=== PATIENT | female | born 1980 | race Caucasian/White ===

== ENCOUNTER 2018-07-14 09:39 | Outpatient (CLI) | payer OTHER ==
[2018-07-14 12:52] LABS: Hemoglobin 13.9 g/dL (12.0-16.0); Mean Corpuscular HGB CONC 33.6 g/dL (32.0-36.0); Mean Corpuscular Volume 95.2 fL (78.0-98.0); Mean Platelet Volume 7.9 fL (7.4-10.4); Platelet Count 290 thou/uL (130-400); RBC Distribution Width 11.5 % (11.5-14.5); Red Blood Cell (RBC) Count 4.35 mill/uL (4.20-5.40); White Blood Cell (WBC) Count 6.4 thou/uL (4.8-10.8)
[2018-07-14 13:09] LABS: BHCG - Serum Negative (NEGATIVE); Pregs Control Background? CLEAR/WHITE (CLR/WHITE); Pregs Control Bar Appear? YES (CONTROL BAR)
== END 2018-07-14 09:40 | disposition home or self-care (01) ==
LOC: LABBT 09:39
PROVIDERS: ATTEND Obstetrics & Gynecology
DX: Z01.812 Encounter for preprocedural laboratory examination (principal); N92.0 Excessive and frequent menstruation with regular cycle; N83.202 Unspecified ovarian cyst, left side
CPT/HCPCS: 84703; 85027; 86850; 86900; 86901

== ENCOUNTER 2018-07-21 09:33 | Day surgery (SDC) | payer OTHER ==
[2018-07-14 10:48] VITALS: BMI 27.4
--- NOTE | 2018-07-20 08:42 | HP ---
PROPOSED DATE OF SURGERY: 07/21/2018. HISTORY OF PRESENT ILLNESS: Ms. De Dios is a 37-year-old white female, G1, P1 with prior section and tubal ligation, who has been having progressively heavy menstrual bleeding. She describe her flow for 3 to 4 days, where she will saturate super tampon in less than 2 hours. She was given a trial of Lysteda and nonsteroidals for this in early fall of this past year. She did not have any significant improvement with her flow and was desiring endometrial ablation trial for this. In May, she had a followup for the medical management and then was with poor response to medical therapy and exchange mechanic ultrasound was performed to ascertain whether she was a candidate for the ablation procedure. Her uterus was normal in appearance that she did have a 6 cm left adnexal cyst seen on this ultrasound. She was given a followup ultrasound in 4 to 6 weeks, but also consideration of the ablation. At that time, she was noting to have persistence of the left adnexal cyst, approximately 5 to 6 cm and simple in character, and also reporting some left lower quadrant pain associated with this. It was decided to proceed with laparoscopy for the left adnexal cyst along with endometrial ablation, hysteroscopy procedure. PAST MEDICAL AND SURGICAL HISTORY: Chronic hypertension, where she is managed by her primary care physician, Dr. Mario, with amlodipine 5 mg daily. As noted, she has had a section and tubal ligation. ALLERGIES: IODINE AND CODEINE. FAMILY HISTORY: Heart disease in her maternal grandfather, skin cancer in her mother, hyperlipidemia in her mother, hypertension in her father. LICENSED MASSAGE THERAPIST HISTORY: As per HPI, and most recent Pap smear and HPV was normal, February of 2018. PHYSICAL EXAMINATION: GENERAL: The patient is well developed, well nourished white female, 5 feet 3 inches, weight 154 with a BMI 27.3. HEENT EXAM: Within normal limits. CHEST: Clear to auscultation. HEART: Regular rate and rhythm. S1, S2 heart sounds. No murmurs, rubs, or gallops. PELVIC EXAM: Vulva and vagina had no lesions. Cervix had no lesions. Uterus is small and nontender. Adnexa on the right was nontender with no masses. Left side was mildly tender with some fullness noted on exam. EXTREMITIES: Full range of motion. ASSESSMENT: 1. This is a 37-year-old white female, G1, P1, section, with tubal ligation with menorrhagia, unresponsive to medical management trial. 2. Persistent left ovarian cyst, approximately 5 to 6 cm with intermittent pain. PLAN: Plan is to proceed with hysteroscopy, D and C with endometrial ablation Catrina procedure along with laparoscopic left ovarian cystectomy and possible oophorectomy, if indicated. This is set for 07/21/2018. Job ID: [id number]
[2018-07-21] MEDS ORDERED: CEFAZOLIN 2 GM/50 ML BAG ONE (09:55)
[2018-07-21] MEDS ORDERED: Midazolam HCl 2 mg/2 ml Vial IVP SCH (11:05)
[2018-07-21] MEDS ORDERED: Bupivacaine HCl 0.5%/Epinephrine 1:200,000/PF 30 ml Vial ONE (12:02)
[2018-07-21] MEDS ORDERED: Fentanyl 100 MCG/2 ML VIAL ONE ×4 (12:03→14:51)
[2018-07-21] MEDS ORDERED: Midazolam HCl 2 mg/2 ml Vial ONE (12:06)
[2018-07-21] MEDS ORDERED: diphenhydrAMINE 50 MG/ML VIAL IVP SCH (14:29)
[2018-07-21] MEDS ORDERED: diphenhydrAMINE 50 MG/ML VIAL ONE (14:45)
[2018-07-21] MEDS ORDERED: Famotidine/PF 20 mg/2ml Vial ONE (15:27)
[2018-07-21] MEDS ORDERED: HYDROmorphone 2 MG/ML VIAL ONE (15:27)
[2018-07-21] MEDS ORDERED: Ondansetron PF 4 MG/2 ML Vial ONE ×2 (15:28→16:55)
[2018-07-21] MEDS ORDERED: Hydrocortisone Sod Succ/PF 100 mg/2 ml Vial ONE (15:34)
[2018-07-21] MEDS ORDERED: Rocuronium Bromide 10 MG/ML (10ML VIAL) ONE (16:55)
[2018-07-21] MEDS ORDERED: Glycopyrrolate 0.2 MG/ML 5 ML SYRINGE ONE (16:55)
[2018-07-21] MEDS ORDERED: Lidocaine 1% PF 5 ML VIAL ONE (16:55)
[2018-07-21] MEDS ORDERED: PROPOFOL 200 MG/20 ML VIAL ONE (16:55)
[2018-07-21] MEDS ORDERED: Dexamethasone 20 MG/5 ML VIAL ONE (16:55)
--- NOTE | 2018-07-21 16:58 | EKG ---
Test Reason : PREOP Blood Pressure : / mmHG Vent. Rate : 059 BPM Atrial Rate : 059 BPM P-R Int : 148 ms QRS Dur : 094 ms QT Int : 444 ms P-R-T Axes : 063 083 028 degrees QTc Int : 439 ms Sinus bradycardia Otherwise normal ECG No previous ECGs available Confirmed by DR. Jannet ALLEN ([id number]) on 07/21/2018 4:57:59 PM Referred By: Rachael Carter Confirmed By:DR. Jannet ALLEN
[2018-07-21] MEDS ORDERED: Morphine 4 MG/ML VIAL SLOW IVP PRN ×2 (17:17)
[2018-07-21] MEDS ORDERED: Ondansetron PF 4 MG/2 ML Vial SLOW IVP PRN (17:18)
[2018-07-21] MEDS ORDERED: HYDROcodone/Acetaminophen 5/325 mg Tablet PO PRN ×2 (17:19)
[2018-07-21] MEDS ORDERED: Lactated Ringer's 1,000 ML IV SCH (17:30)
[2018-07-21] MEDS ORDERED: Promethazine HCl 25 MG/ML VIAL ONE (17:31)
[2018-07-21] MEDS ORDERED: Ibuprofen 800 MG TAB PO SCH (18:00)
--- NOTE | 2018-07-21 18:33 | OP ---
DATE OF PROCEDURE: 07/21/2018 PREOPERATIVE DIAGNOSES: 1. A 37-year-old white female, G1, P1, prior and tubal ligation with menorrhagia, unresponsive to medical management. 2. Persistent 5 cm simple left ovarian cyst with pelvic pain. POSTOPERATIVE DIAGNOSES: 1. A 37-year-old white female, G1, P1, prior and tubal ligation with menorrhagia, unresponsive to medical management. 2. Persistent 5 cm simple left ovarian cyst with pelvic pain. PROCEDURES PERFORMED: 1. Diagnostic hysteroscopy with D and C and endometrial ablation with Catrina device. 2. Diagnostic laparoscopy with left ovarian cystectomy. DIVISION SALES MANAGER SURGEON: Mercedes Navarro PA-C ANESTHESIA: General endotracheal. ESTIMATED BLOOD LOSS: Less than 10 mL. COMPLICATIONS: None. COUNTS: Correct x2. FINDINGS: 1. Normal endocervical and endometrial cavity on hysteroscopy evaluation. 2. Fluid deficit from hysteroscopy was 20 mL of normal saline. 3. Normal-appearing uterus, right fallopian tube, and right ovary and left fallopian tube. 4. Approximately 3.5 cm deflating left ovarian simple cyst noted with clear fluid drainage noted. 5. Normal-appearing appendix, liver, gallbladder, and uterus. DISPOSITION: Recovery room, stable. DESCRIPTION OF PROCEDURE: The patient previously received informed consent in regard to surgery. She was taken back to the operating room, where she received a general endotracheal anesthetic agent without complications. She was placed in dorsal lithotomy position with use of Giacomo stirrups. She was prepped and draped in usual sterile fashion with in and out catheterization of bladder being performed. At this time, a sinus speculum was placed in the vagina. Anterior lip of the cervix was grasped with single-tooth tenaculum. The uterus sounded to 9 cm. The cervix was then sequentially dilated to a size 16 Hegar dilator and then the diagnostic 5 mm hysteroscope was assembled. The cystoscope was inserted through the cervical os into the endometrial cavity and the cavity was distended with saline under 80 mm of pressure. This was with the TrSustainX system. The previously mentioned findings were noted. Sharp curettage of the uterine cavity was then performed. This was sent for final pathologic diagnosis. The Catrina endometrial ablation device was then assembled. The length was set to 5 cm. The device was placed through the cervix up in the fundus and the end of the device was displayed. Usual cavity assessment was intact and the procedure was carried out with a 120 second treatment. The Catrina device was removed and hysteroscope was reinserted and ablation of the fundus and cornua in the lower uterine segment with sparing of the endocervical cavity was confirmed. Attention was then turned to the laparoscopic procedure. The infraumbilical area was infiltrated with 0.5% Marcaine with epinephrine 5 mL. A 5 mm infraumbilical incision was made. Veress needle was then entered into the peritoneal cavity, the patient's pressure was noted to be less than 5 mm. The abdomen was insufflated with the patient's pressure of 15 approximately 4.5 L of carbon dioxide gas. The Veress needle was then removed. A 5 mm trocar was then placed through the infraumbilical incision and the laparoscope was introduced through the trocar sleeve. Proper entry was then confirmed. The uterus was elevated by my assistant project engineer with a [employer]base uterine manipulator vaginally and the previously mentioned findings were noted. An assistant project engineer 5 mm suprapubic trocar was then placed under laparoscopic guidance along with the left lower quadrant 5 mm trocar. The adnexal structure was grasped at the left utero-ovarian ligament with the atraumatic grasper by my assistant project engineer. The deflated portion of the ovarian cyst was visualized in the nehal with cautery, 30 briceno was utilized to incise over the flayed portion of the cyst. Approximately a 2 cm window was made with clear fluid draining from the cyst and deflation of it. The edges of the cyst were cauterized with the Endo Nehal for hemostasis. Once this was completed, the previously mentioned findings were noted in the pelvis. The surgery was terminated. The trocar sleeves were removed after excess carbon dioxide gas had been released. Trocar sites were closed with 4-0 Monocryl suture and Dermabond. The vaginal vault was inspected. Hemostasis at the cervical site was confirmed. The patient was awakened from anesthesia and transferred to recovery room in stable condition. Job ID: [id number]
== END 2018-07-21 19:15 | disposition home or self-care (01) ==
LOC: SDC 09:33
PROVIDERS: ATTEND Obstetrics & Gynecology
PROC: 0U5B8ZZ Destruction of Endometrium, Via Natural or Artificial Opening Endoscopic (ICD-10-PCS; principal; 2018-07-21)
PROC: 0UDB8ZZ Extraction of Endometrium, Via Natural or Artificial Opening Endoscopic (ICD-10-PCS; principal; 2018-07-21)
PROC: 0UB14ZZ Excision of Left Ovary, Percutaneous Endoscopic Approach (ICD-10-PCS; principal; 2018-07-21)
DX: N92.0 Excessive and frequent menstruation with regular cycle (principal); N83.202 Unspecified ovarian cyst, left side; I10 Essential (primary) hypertension; Z98.51 Tubal ligation status; Z88.5 Allergy status to narcotic agent; Z91.09 Other allergy status, other than to drugs and biological substances; Z79.899 Other long term (current) drug therapy
CPT/HCPCS: 88305; 93005; 93010; J0670; J1100; J1170; J1200; J1720; J2001; J2250; J2405; J2550; J2704; J3010; S0028

== ENCOUNTER 2018-12-11 21:49 | Inpatient (IN) | payer OTHER ==
[2018-12-11 22:36] LABS: #Basophils 0.1 thou/uL (0.0-0.2); #Eosinphils 0.2 thou/uL (0.0-0.7); #Lymphocytes 1.6 thou/uL (1.20-3.40); #Monocytes 0.7 thou/uL (0.11-0.59); #Neutrophils 5.7 thou/uL (1.40-6.50); %Basophils 0.7 % (0.0-1.0); %Eosinophils 2.6 % (0.0-10.0); %Lymphocytes 19.8 % (21.0-51.0); %Neutrophils 68.9 % (42.0-75.0); Hemoglobin 12.7 g/dL (12.0-16.0); Mean Corpuscular HGB CONC 34.4 g/dL (32.0-36.0); Mean Corpuscular Hemoglobin 31.8 pg (27.0-31.0); Mean Corpuscular Volume 92.6 fL (78.0-98.0); Mean Platelet Volume 7.2 fL (7.4-10.4); Platelet Count 289 thou/uL (130-400); RBC Distribution Width 11.1 % (11.5-14.5); Red Blood Cell (RBC) Count 3.99 mill/uL (4.20-5.40); White Blood Cell (WBC) Count 8.3 thou/uL (4.8-10.8)
[2018-12-11 23:01] LABS: ALT (SGPT) 13 U/L (8-55); AST (SGOT) 21 U/L (5-34); Alkaline Phosphatase 81 U/L (40-150); Anion Gap 12 mmol/L (10-20); BUN (Urea Nitrogen) 35 mg/dL (7.0-18.7); Bilirubin, Total 0.2 mg/dL (0.2-1.2); Calc. Creatinine Clearance 0 mL/min (70-130); Calcium 8.7 mg/dL (7.8-10.44); Carbon Dioxide 22 mmol/L (22-29); Chloride 107 mmol/L (98-107); Estimated GFR-MDRD 16; Globulin 2.8 g/dL (2.4-3.5); Glucose 91 mg/dL (70-105); Protein, Total 6.8 g/dL (6.0-8.3); Sodium 137 mmol/L (136-145)
[2018-12-12] MEDS ORDERED: Metoclopramide HCl 10 MG/2 ML VIAL ONE (00:16)
[2018-12-12] MEDS ORDERED: diphenhydrAMINE 50 MG/ML VIAL ONE (00:16)
[2018-12-12 00:50] LABS: BHCG - Serum Negative (NEGATIVE); Pregs Control Background? CLEAR/WHITE (CLR/WHITE); Pregs Control Bar Appear? YES (CONTROL BAR)
[2018-12-12] MEDS ORDERED: Ondansetron PF 4 MG/2 ML Vial IVP PRN (01:33)
[2018-12-12] MEDS ORDERED: Ondansetron ODT 4 MG TAB SL PRN (01:33)
[2018-12-12] MEDS ORDERED: Acetaminophen 325 MG TAB PO PRN (01:33)
[2018-12-12] MEDS ORDERED: Lactated Ringer's 1,000 ML IV SCH (01:45)
[2018-12-12 01:58] VITALS: BMI 31.1
[2018-12-12] MEDS ORDERED: Bisacodyl 10 MG SUPP PR PRN (02:31)
[2018-12-12] MEDS ORDERED: Guaifenesin DM 100-10/5 ML UDCUP PO PRN (02:31)
[2018-12-12] MEDS ORDERED: Senokot S 8.6-50 MG TAB PO PRN (02:31)
[2018-12-12] MEDS: Sodium Chloride 0.45% 1,000 ML IV SCH ×3 (02:51→19:41)
--- NOTE | 2018-12-12 04:53 | HP ---
REASON FOR ADMISSION: Acute kidney injury. HISTORY OF PRESENTING ILLNESS: The patient gives history of having frontal headache and nausea and vomiting which she developed on Friday. She also had a temperature of 99.1 degrees on and finally made it to the emergency room. She was given a dose of Toradol and Benadryl and sent home. The patient also developed low back pain. She has not been able to hydrate herself or eat well from last Friday. She went to see Dr. Mario yesterday and had blood work done. His office called her back saying her creatinine is up and had to go to the emergency room for likely hospitalization. Currently has no nausea or vomiting at present. No complaints of urinary frequency or urgency. No abdominal pain, diarrhea, chest pain, palpitation, PND, or orthopnea. No cough or expectoration. Did not have any fever today. PAST MEDICAL AND SURGICAL HISTORY: Hypertension, history of C-spine surgery, ovarian cyst surgery, uterine ablation, x1 and tubal ligation. CURRENT MEDICATION: Norvasc 5 mg daily and sertraline 100 mg daily. The patient takes a medication for herpes oral sore off and on when she gets reactivation of herpes. ALLERGIES: ALLERGIC TO NARCOTICS, WHICH CAUSES ANAPHYLAXIS PER PATIENT. SHE IS ALSO ALLERGIC TO ADHESIVE TAPE, WHICH CAUSES RASH. PERSONAL HISTORY: Does not abuse alcohol or drugs. No history of smoking. FAMILY HISTORY: Mother has history of dyslipidemia. Father had CABG done and is also a smoker and drinks alcohol. REVIEW OF SYSTEMS: CONSTITUTIONAL: Negative for weight loss or gain, ability to conduct usual activities. SKIN: Negative for rash, itching. EYES: Negative for double vision, pain. ENT/MOUTH: Negative for nose bleeding, neck stiffness, pain, tenderness. CARDIOVASCULAR: Negative for palpitations, dyspnea on exertion, orthopnea. RESPIRATORY: Negative for shortness of breath, wheezing, cough, hemoptysis, fever or night sweats. GASTROINTESTINAL: Negative for poor appetite, abdominal pain, heartburn, nausea , vomiting, constipation, or diarrhea. GENITOURINARY: Negative for urgency, frequency, dysuria, nocturia. MUSCULOSKELETAL: Negative for pain, swelling. NEUROLOGIC/PSYCHIATRIC: Negative for anxiety, depression. ALLERGY/IMMUNOLOGIC: Negative for skin rash, bleeding tendency. PHYSICAL EXAMINATION: GENERAL: The patient is a 38-year-old female who is currently not in any acute distress. VITAL SIGNS: Blood pressure 140/86, pulse 64 per minute, respiratory rate 18 per minute, temperature 98 degrees Fahrenheit, and saturating 97% on room air. NECK: Supple. No elevated JVD. HEENT: Eyes; extraocular muscles intact. Pupils reacting to light. Oral cavity, mucous membranes are dry. No exudates or congestion. CARDIOVASCULAR: S1-S2 heard. Regular rhythm. RESPIRATORY: Air entry 1+ bilateral. No rales or rhonchi. ABDOMEN: Soft. Bowel sounds heard. No tenderness, rigidity, or guarding. No CV angle tenderness. EXTREMITIES: No peripheral edema or calf tenderness. VASCULAR: Peripheral pulses 2+ bilateral. No ischemic ulcerations or gangrene. CENTRAL NERVOUS SYSTEM: No gross focal deficits noted. The patient is alert, awake and oriented well. PSYCHIATRIC: The patient's mood is euthymic. No hallucinations or delusions. LABORATORY DATA: White count of 8, H and H 12 and 36, platelet count is 289 with 68% neutrophils. BUN 35, creatinine 3.2, serum bicarb 22. Electrolytes stable. Liver enzymes within normal limits. Albumin is 4.0. Serum test is negative. Lipase is 23. Please note, the patient has had abdominal and pelvic CAT scan and CT brain, the results of which are pending at present. CLINICAL IMPRESSION AND PLAN: The patient will be admitted to medical floor for acute kidney injury with history of severe nausea, vomiting, and headache from Friday. She likely has moderate dehydration as well. The patient will be gently hydrated with half-normal saline at 125 mL per hour. We will continue her Norvasc and Zoloft as before. We will await official results of CT abdomen and pelvis and CT brain results. The patient does not have any focal neurologic signs at present. Further workup will be dependent on the patient's clinical progress and the CAT scan results. We will request Nephrology consultation with Dr. Hennessy as well. Urinalysis and urine culture will be obtained as well. Code status was discussed with the patient and she is a full code. Job ID: [id number] MTDD
[2018-12-12 05:26] LABS: Bilirubin Negative (Negative); Blood, Urine Negative (Negative); Clarity CLEAR (Clear); Glucose, Urine (Dipstick) Negative (Negative); Leukocyte Negative (Negative); Nitrite Negative (Negative); Protein, Urine (Dipstick) Negative (Neg-Trace); Urobilinogen 0.2 mg/dL (0.2-1.0)
[2018-12-12 05:29] LABS: Bacteria/HPF None Seen HPF (None Seen); Hyaline Casts/LPF 0-3 HYALINE CAST LPF (0-3 Hyaline); Pathc Cast-AUWi Flag 0.27 (0-2.49); RBC/HPF 0-3 HPF (0-3); Squamous Epithelial 0-3 HPF (0-3)
[2018-12-12 05:44] LABS: #Basophils 0.1 thou/uL (0.0-0.2); #Eosinphils 0.1 thou/uL (0.0-0.7); #Lymphocytes 1.5 thou/uL (1.20-3.40); #Monocytes 0.6 thou/uL (0.11-0.59); #Neutrophils 5.7 thou/uL (1.40-6.50); %Basophils 0.9 % (0.0-1.0); %Eosinophils 1.6 % (0.0-10.0); %Lymphocytes 18.7 % (21.0-51.0); %Monocytes 7.5 % (0.0-10.0); %Neutrophils 71.3 % (42.0-75.0); Hemoglobin 12.2 g/dL (12.0-16.0); Mean Corpuscular HGB CONC 33.3 g/dL (32.0-36.0); Mean Corpuscular Hemoglobin 31.1 pg (27.0-31.0); Mean Corpuscular Volume 93.2 fL (78.0-98.0); Mean Platelet Volume 7.9 fL (7.4-10.4); Platelet Count 251 thou/uL (130-400); RBC Distribution Width 11.3 % (11.5-14.5); Red Blood Cell (RBC) Count 3.94 mill/uL (4.20-5.40)
[2018-12-12 06:06] LABS: Anion Gap 12 mmol/L (10-20); BUN (Urea Nitrogen) 31 mg/dL (7.0-18.7); Calc. Creatinine Clearance 32 mL/min (70-130); Calcium 8.5 mg/dL (7.8-10.44); Carbon Dioxide 22 mmol/L (22-29); Chloride 109 mmol/L (98-107); Estimated GFR-MDRD 18; Glucose 94 mg/dL (70-105); Sodium 139 mmol/L (136-145)
--- NOTE | 2018-12-12 07:54 | CT ---
PRELIMINARY REPORT/[facility]/EMERGENCY AFTER HOURS PROCEDURE: EXAM: CT Head Without Contrast EXAM DATE/TIME: 12/12/2018 12:19 AM CLINICAL HISTORY: 38 years old, female; Headache not specified; Patient HX: F38 presents to ED for headache, low back p ain, nausea, and vomiting x 3 days. TECHNIQUE: Imaging protocol: Axial computed tomography images of the head without contrast. COMPARISON: No relevant prior studies available. FINDINGS: Brain: Normal. No hemorrhage. Unremarkable white matter. No mass effect. Ventricles: Normal. No ventriculomegaly. Bones/joints: Unremarkable. No acute fracture. Sinuses: Visualized sinuses are unremarkable. No fluid levels. Mastoid air cells: Visualized mastoid air cells are well aerated. No mastoid effusion. Soft tissues: Unremarkable. IMPRESSION: No acute intracranial abnormality. Thank you for allowing us to participate in the care of your patient. Dictated and Authenticated by: Syed Arechiga MD 12/12/2018 12:45 AM Central Time ([place] & [place]) FINAL REPORT NONCONTRAST HEAD CT: HISTORY: Nausea. Vomiting. Headache. FINDINGS: No parenchymal hemorrhage or extra-axial hematoma. Brain volume is age-appropriate. No hydrocephalus, Intact calvarium. Adequate aeration of the sinuses and mastoid air cells. IMPRESSION: No acute intracranial process. This report is in agreement with the preliminary report by [facility]. POS: OFF
--- NOTE | 2018-12-12 08:48 | CT ---
PRELIMINARY REPORT/[facility]/EMERGENCY AFTER HOURS PROCEDURE: EXAM: CT Abdomen and Pelvis Without Contrast EXAM DATE/TIME: 12/12/2018 12:21 AM CLINICAL HISTORY: 38 years old, female; Other: Lower back; Prior surgery; Surgery type: Tubal; Patient HX: Rme-b; No pr evious on pacs; F38 presents to ED for headache, low back pain, nausea, and vomiting x 3 days. PT rep orts a HX of kidney stones but states current symptoms no not feel similar to previous stones. TECHNIQUE: Imaging protocol: Axial computed tomography images of the abdomen and pelvis without contrast. COMPARISON: No relevant prior studies available. FINDINGS: Liver: Normal. No mass. Gallbladder and bile ducts: Normal. No calcified stones. No ductal dilation. Pancreas: Normal. No ductal dilation. Spleen: Normal. No splenomegaly. Adrenals: Normal. No mass. Kidneys and ureters: Nonobstructing stones in the kidneys bilaterally. There is diffuse inflammation of the right kidney and right ureter with no hydroureteronephrosis or obstructing urolithiasis, consistent with pyelonephritis. Stomach and bowel: No bowel wall thickening or intestinal obstruction. Appendix: Normal appendix. Intraperitoneal space: Small volume free fluid in the dependent pelvis may be physiologic. Vasculature: Normal. No abdominal aortic aneurysm. Lymph nodes: Normal. No enlarged lymph nodes. Bladder: Unremarkable as visualized. Reproductive: Unremarkable as visualized. Bones/joints: No acute fracture. No dislocation. Soft tissues: Unremarkable. IMPRESSION: 1. There is diffuse inflammation of the right kidney and right ureter with no hydroureteronephrosis o r obstructing urolithiasis, consistent with pyelonephritis. 2. Small volume free fluid in the dependent pelvis may be physiologic. Thank you for allowing us to participate in the care of your patient. Dictated and Authenticated by: Syed Arechiga MD 12/12/2018 1:05 AM Central Time ([place] & [place]) FINAL REPORT CT ABDOMEN AND PELVIS PERFORMED WITHOUT CONTRAST ENHANCEMENT: Date: 12/12/18 HISTORY: Patient has low back pain, nausea and vomiting x3 days, history of kidney stones. COMPARISON: None. FINDINGS: The lung bases are clear. The liver, spleen, pancreas, and gallbladder regions appear unremarkable. Right and left adrenal glands are normal. There are punctate nonobstructing right renal calculi prese nt. There is some right periureteral fat stranding around the proximal right ureter, which is nondila carmen. There is no obstruction of the collecting system and no definite ureteral calculi are seen. Ther e are some phleboliths present in the pelvis, some of which would be very close to the distal right u reter, but I favor all of these to represent phleboliths. There is no significant periaortic or mesen teric adenopathy. CT of pelvis was performed without contrast enhancement. There is some free fluid present within the pelvis. There is no adenopathy or mass. The appendix appears unremarkable. IMPRESSION: 1. Bilateral nonobstructing punctate renal calculi. 2. Some mild fat stranding around the right ureter. The right kidney appears slightly larger as comp ared to the left. I do not see a definite ureteral calculus. I would favor that these changes may be related to a pyelonephritis. Clinical correlation is recommended. This report is in agreement with the preliminary report issued by [facility].
[2018-12-12] MEDS: Famotidine 20 MG TAB PO SCH (09:03)
[2018-12-12] MEDS: Amlodipine 5 MG TAB PO SCH (09:04)
[2018-12-12] MEDS: Enoxaparin Sodium 30 MG/0.3 ML SYRINGE SC SCH (09:04)
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
[2018-12-12] MEDS: Acetaminophen 325 MG TAB PO PRN ×2 (15:13→19:40)
[2018-12-13] MEDS: Sodium Chloride 0.45% 1,000 ML IV SCH ×3 (03:17→17:18)
[2018-12-13] MEDS ORDERED: Calcium Carbonate 500 MG ChewTAB PO PRN (07:49)
[2018-12-13] MEDS ORDERED: Cepastat Lozenges 1 LOZ PO PRN (07:49)
[2018-12-13] MEDS ORDERED: Loperamide HCl 2 MG CAP PO PRN (07:49)
[2018-12-13] MEDS ORDERED: Sodium Chloride 0.65% Nasal 44 ML BOT EA NARE PRN (07:49)
[2018-12-13] MEDS ORDERED: Ondansetron ODT 4 MG TAB PO PRN (07:49)
[2018-12-13] MEDS ORDERED: Loratadine 10 MG TAB PO PRN (07:49)
[2018-12-13] MEDS ORDERED: Zolpidem Tartrate 5 MG TAB PO PRN (07:49)
[2018-12-13] MEDS ORDERED: Ondansetron PF 4 MG/2 ML Vial IVP PRN (07:49)
[2018-12-13] MEDS ORDERED: Artificial Tears 18 DROP/0.9 ML EA EYE PRN (07:49)
[2018-12-13] MEDS ORDERED: Diabetic Tussin 200 MG/10 ML UDCUP PO PRN (07:49)
[2018-12-13] MEDS ORDERED: hydrALAZINE 20 MG/ML VIAL SLOW IVP PRN (07:49)
[2018-12-13] MEDS: Saccharomyces boulardii 250 MG CAP PO SCH (09:03)
[2018-12-13] MEDS: Enoxaparin Sodium 30 MG/0.3 ML SYRINGE SC SCH (09:03)
[2018-12-13] MEDS: Amlodipine 5 MG TAB PO SCH (09:03)
[2018-12-13] MEDS: Famotidine 20 MG TAB PO SCH (09:03)
[2018-12-13 10:04] LABS: Anion Gap 13 mmol/L (10-20); BUN (Urea Nitrogen) 20 mg/dL (7.0-18.7); Calc. Creatinine Clearance 54 mL/min (70-130); Calcium 9.1 mg/dL (7.8-10.44); Carbon Dioxide 23 mmol/L (22-29); Chloride 107 mmol/L (98-107); Estimated GFR-MDRD 33; Glucose 97 mg/dL (70-105); Potassium 4.1 mmol/L (3.5-5.1); Sodium 139 mmol/L (136-145)
--- NOTE | 2018-12-13 11:41 | PDOC.PN ---
- Subjective Encounter Start Date: 12/13/18 Encounter Start Time: 09:30 -: old records requested/rev Patient seen and examined. No new complaints. No overnight events - Objective Resuscitation Status - Order Detail: 12/12/18 02:29 Resuscitation Status Routine Resuscitation Status: FULL: Full Resuscitation MAR Reviewed: Yes Vital Signs & Weight: Vital Signs (12 hours) Temp Pulse Resp BP Pulse Ox 12/13/18 08:00 97.7 F 53 L 16 128/71 99 Weight Admit Weight 169 lb 15.622 oz Weight 169 lb 15.622 oz I&O: 12/12/18 12/13/18 12/14/18 06:59 06:59 06:59 Intake Total 2655 Balance 2655 Result Diagrams: 12/12/18 05:28 12/13/18 09:32 Radiology Reviewed by me: Yes Phys Exam - Physical Examination Constitutional: NAD HEENT: PERRLA, moist MMs, sclera anicteric Neck: no JVD, supple Respiratory: no wheezing, no rales, no rhonchi Cardiovascular: RRR, no significant murmur, no rub Gastrointestinal: soft, non-tender, no distention, positive bowel sounds Musculoskeletal: no edema, pulses present Neurological: non-focal, normal sensation, moves all 4 limbs Lymphatic: no nodes Psychiatric: normal affect, A&O x 3 Skin: no rash, normal turgor Dx/Plan (1) Acute kidney failure Status: Acute Comment: hemodynemically mediated renal dysfunction, precipitated by NSAID use (2) Acute pyelonephritis Code(s): N10 - ACUTE PYELONEPHRITIS Status: Acute (3) Anxiety and depression Code(s): F41.9 - ANXIETY DISORDER, UNSPECIFIED; F32.9 - MAJOR DEPRESSIVE DISORDER, SINGLE EPISODE, UNSPECIFIED Status: Chronic (4) Hypertension Code(s): I10 - ESSENTIAL (PRIMARY) HYPERTENSION Status: Chronic (5) Obesity (BMI 30.0-34.9) Code(s): E66.9 - OBESITY, UNSPECIFIED Status: Chronic - Plan cont current plan of care, plan discussed w/ family * continue iVF * renal function improving * continue levaquin * check urine sodium, creatinine and protein * nephrology following * repeat labs tomorrow * discussed with family * medication reviewed as below * symptomatic treatment. Review of Systems - Review of Systems ENT: negative: Ear Pain, Ear Discharge, Nose Pain, Nose Discharge, Nose Congestion, Mouth Pain, Mouth Swelling, Throat Pain, Throat Swelling, Other Respiratory: negative: Cough, Dry, Shortness of Breath, Hemoptysis, SOB with Excertion, Pleuritic Pain, Sputum, Wheezing Cardiovascular: negative: chest pain, palpitations, orthopnea, paroxysmal nocturnal dyspnea, edema, light headedness, other Gastrointestinal: negative: Nausea, Vomiting, Abdominal Pain, Diarrhea, Constipation, Melena, Hematochezia, Other Genitourinary: negative: Dysuria, Frequency, Incontinence, Hematuria, Retention , Other Musculoskeletal: negative: Neck Pain, Shoulder Pain, Arm Pain, Back Pain, Hand Pain, Leg Pain, Foot Pain, Other Skin: negative: Rash, Lesions, Roberth, Bruising, Other - Medications/Allergies Allergies/Adverse Reactions: Allergies Allergy/AdvReac Type Severity Reaction Status Date / Time adhesive tape Allergy Intermediate Rash Verified 07/14/18 10:46 hydrocodone Allergy Intermediate RASH, ITCHY Verified 07/14/18 10:46 tramadol Allergy Mild ITCHY Verified 07/14/18 10:46 Medications: Current Medications Acetaminophen (Tylenol) 650 mg PO Q4H PRN PRN Reason: Headache/Fever/Mild Pain (1-3) Last Admin: 12/12/18 19:40 Dose: 650 mg Amlodipine Besylate (Norvasc) 5 mg PO QAM [facility] Last Admin: 12/13/18 09:03 Dose: 5 mg Artificial Tears (Tears Naturale) 2 drop EA EYE PRN PRN PRN Reason: Dry Eyes Bisacodyl (Dulcolax) 10 mg AR DAILYPRN PRN PRN Reason: Constipation Calcium Carbonate (Tums) 1,000 mg PO Q4H PRN PRN Reason: Heartburn or Indigestion Enoxaparin Sodium (Lovenox) 30 mg SC 0900 [facility] Last Admin: 12/13/18 09:03 Dose: 30 mg Famotidine (Pepcid) 20 mg PO DAILY [facility] Last Admin: 12/13/18 09:03 Dose: 20 mg Guaifenesin (Robitussin Sf) 200 mg PO Q4H PRN PRN Reason: Cough Guaifenesin/Dextromethorphan (Robitussin Dm) 15 ml PO Q4H PRN PRN Reason: Cough Hydralazine HCl (Apresoline) 10 mg SLOW IVP Q4H PRN PRN Reason: SBP > 180 and HR < 70 Sodium Chloride (1/2 Normal Saline) 1,000 mls @ 125 mls/hr IV .Q8H [facility] Last Admin: 12/13/18 09:07 Dose: 1,000 mls Levofloxacin 500 mg/ Device 100 mls @ 100 mls/hr IVPB Q24HR [facility] Last Admin: 12/12/18 15:13 Dose: 100 mls Loperamide HCl (Imodium) 2 mg PO PRN PRN PRN Reason: Diarrhea/Loose Stools Loratadine (Claritin) 10 mg PO DAILYPRN PRN PRN Reason: Sinus Symptoms Ondansetron HCl (Zofran Odt) 4 mg PO Q6H PRN PRN Reason: Nausea/Vomiting Ondansetron HCl (Zofran) 4 mg IVP Q6H PRN PRN Reason: Nausea/Vomiting Pantoprazole Sodium (Protonix) 40 mg PO DAILY [facility] Last Admin: 12/13/18 09:03 Dose: 40 mg Saccharomyces Boulardii (Florastor) 250 mg PO DAILY [facility] Last Admin: 12/13/18 09:03 Dose: 250 mg Senna/Docusate Sodium (Senokot S) 2 tab PO BID PRN PRN Reason: Constipation Sertraline HCl (Zoloft) 100 mg PO HS [facility] Sodium Chloride ([place] Nasal [place] 0.65%) 0 ml EA NARE QIDPRN PRN PRN Reason: Nasal Congestion Throat Lozenges (Cepastat Lozenges) 1 reagan PO Q2H PRN PRN Reason: Sore Throat Zolpidem Tartrate (Ambien) 5 mg PO HSPRN PRN PRN Reason: Insomnia
[2018-12-13 11:43] LABS: Creatinine, Urine 29.67 mg/dL (47-110); Protein, Urine Random Quant Less than 10 mg/dL (1-14); Sodium, Urine 91 mmol/L (Not Available)
--- NOTE | 2018-12-13 12:45 | PRG ---
DATE OF SERVICE: 12/13/2018 SUBJECTIVE: Ms. De Dios is a 38-year-old white female, who was seen by the Renal Service for her acute kidney injury that was hemodynamically-mediated renal dysfunction. Empiric IV hydration was given to the patient with improvement of the renal function. This morning, she is feeling better. Her headache has much improved. No complaints of chest pain or shortness of breath. OBJECTIVE: VITAL SIGNS: Blood pressure is 128/71, heart rate 53, respiratory rate 16, temperature 97.7, and pulse ox 99%. GENERAL: Awake, alert, comfortable, not in distress. SKIN: Adequate turgor. HEENT: She has a pinkish conjunctivae. Anicteric sclerae. NECK: No neck mass. No carotid bruits. No JVD. CHEST: No deformities. LUNGS: Clear breath sounds. No wheezing. No crackles. HEART: Normal sinus rhythm. No murmur. No gallops. No rubs. ABDOMEN: Globular, soft, nontender. No masses. EXTREMITIES: No edema. No deformities. MEDICATIONS: Mediations of December 13, 2018, were reviewed. LABORATORY DATA: Laboratories of December 12, 2018, white count 8 and hemoglobin 12.2. December 13, 2018, sodium 139, potassium 4.1, chloride 107, carbon dioxide 23, BUN 20, creatinine 1.7, GFR 33 mL/minute, glucose 97, calcium 9.1. ASSESSMENT AND PLAN: 1. Acute kidney injury-I suspect this is hemodynamically-mediated renal dysfunction. Her creatinine has much improved with gentle volume repletion. I suspect she was volume depleted with concomitant intake of NSAIDs may have precipitated this acute kidney injury. Most recent creatinine is 1.7. There is no indication for any dialytic intervention. The patient to continue with IV hydration. If the patient is discharged today, we instructed the patient to follow up at the [facility]. 2. Overall, agree with current management. Recheck basic metabolic profile, CBC in a.m. Job ID: [id number]
[2018-12-13] MEDS: Acetaminophen 325 MG TAB PO PRN (18:21)
[2018-12-13] MEDS ORDERED: Sodium Chloride 0.9% 10 ML ONE (19:26)
[2018-12-13] MEDS ORDERED: Sodium Chloride 0.9% 100 ML ONE (19:26)
[2018-12-13 21:14] VITALS: TEMP 97.9
[2018-12-14] MEDS: Sodium Chloride 0.45% 1,000 ML IV SCH (05:21)
[2018-12-14 05:51] LABS: #Basophils 0.1 thou/uL (0.0-0.2); #Eosinphils 0.1 thou/uL (0.0-0.7); #Monocytes 0.5 thou/uL (0.11-0.59); #Neutrophils 3.3 thou/uL (1.40-6.50); %Eosinophils 2.3 % (0.0-10.0); %Lymphocytes 33.3 % (21.0-51.0); %Monocytes 8.7 % (0.0-10.0); %Neutrophils 54.6 % (42.0-75.0); Hemoglobin 12.4 g/dL (12.0-16.0); Mean Corpuscular HGB CONC 33.7 g/dL (32.0-36.0); Mean Corpuscular Hemoglobin 31.4 pg (27.0-31.0); Mean Platelet Volume 7.3 fL (7.4-10.4); Platelet Count 253 thou/uL (130-400); RBC Distribution Width 11.3 % (11.5-14.5); Red Blood Cell (RBC) Count 3.97 mill/uL (4.20-5.40)
[2018-12-14 06:11] LABS: Albumin 3.8 g/dL (3.5-5.0); Anion Gap 12 mmol/L (10-20); BUN (Urea Nitrogen) 18 mg/dL (7.0-18.7); BUN/Creatinine Ratio 14.17; Calc. Creatinine Clearance 72 mL/min (70-130); Carbon Dioxide 22 mmol/L (22-29); Chloride 107 mmol/L (98-107); Estimated GFR-MDRD 47; Glucose 93 mg/dL (70-105); Phosphorus 4.2 mg/dL (2.3-4.7); Potassium 4.1 mmol/L (3.5-5.1); Sodium 137 mmol/L (136-145)
[2018-12-14] MEDS: Amlodipine 5 MG TAB PO SCH (08:21)
[2018-12-14] MEDS: Famotidine 20 MG TAB PO SCH (08:21)
[2018-12-14] MEDS: Saccharomyces boulardii 250 MG CAP PO SCH (08:21)
[2018-12-14] MEDS: Enoxaparin Sodium 30 MG/0.3 ML SYRINGE SC SCH (08:21)
[2018-12-14 08:58] VITALS: BP 139/96
[2018-12-14] MEDS ORDERED: valACYclovir 500 MG TAB PO SCH (09:00)
--- NOTE | 2018-12-14 09:49 | PRG ---
DATE OF SERVICE: 12/14/2018 SUBJECTIVE: Ms. De Dios is a 38-year-old white female, who was seen by the Renal Service for her acute kidney injury. The feeling is that this was a hemodynamically-mediated renal dysfunction. The patient received IV volume repletion with improvement of the renal function. She has also an incidental finding on CT scan of the abdomen and pelvis, which was suspicious for diffuse inflammation of the right kidney. Urine, SECTION LEADER SCREEN PRINTING, and blood culture have been all negative. She was empirically treated with IV antibiotics. The patient remains asymptomatic. No other complaints. No chest pain or shortness of breath. OBJECTIVE: VITAL SIGNS: Blood pressure is 139/96, heart rate 51, respiratory rate 14, temperature 97.9, and pulse ox 98%. GENERAL: Awake, alert, and comfortable, not in distress. SKIN: Adequate turgor. HEENT: She has pinkish conjunctivae. Anicteric sclerae. NECK: No neck mass. No carotid bruits. No JVD. CHEST: No deformities. LUNGS: Clear breath sounds. No wheezing. No crackles. HEART: Normal sinus rhythm. No murmurs. No gallops. No rubs. ABDOMEN: Globular, soft, and nontender. No masses. EXTREMITIES: No edema. No deformities. MEDICATIONS: Medications of December 14, 2018, reviewed. LABORATORY DATA: Laboratories of December 14, 2018; white count 6. Sodium 137, potassium 4.1, chloride 107, carbon dioxide 22, BUN 18, creatinine 1.27, calcium is 9, phosphorus 4.2, and albumin 3.8. ASSESSMENT AND PLAN: 1. Acute kidney injury - hemodynamically-mediated renal dysfunction, much improved renal function with IV hydration. Continue to hold off any NSAIDs. 2. Renal stranding - empiric antibiotics. Urine culture and blood culture all negative. 3. Overall agree with current management. Job ID: [id number] MTDD
--- NOTE | 2018-12-14 10:53 | DIS ---
DATE OF ADMISSION: 12/12/2018 DATE OF DISCHARGE: 12/14/2018 PRIMARY CARE PHYSICIAN: Felice Mario MD. DISCHARGE DISPOSITION: Home. PRIMARY DISCHARGE DIAGNOSES: 1. Acute kidney failure. 2. Acute pyelonephritis. SECONDARY DISCHARGE DIAGNOSES: 1. Obesity with BMI 33. 2. Hypertension. 3. Anxiety and depression. PRIMARY PROCEDURE/OPERATION: None. RADIOLOGICAL INVESTIGATIONS: Abdomen and pelvis CT scan. CT brain. SIGNIFICANT LABORATORY DATA: Hemoglobin 12.4. Creatinine 1.27. LFT, normal. test, negative. Urinalysis, unremarkable. Blood culture and urine culture, negative. DISCHARGE MEDICATIONS: 1. Amlodipine 5 mg p.o. daily. 2. Zoloft 100 mg p.o. at bedtime. 3. Valacyclovir as directed. 4. Levaquin 500 mg p.o. daily for 5 more days. CONTRAINDICATION: None. CODE STATUS: Full code. INPATIENT JOSS HOUSE KEEPER: Dr. Hennessy was consulted while in hospital. TEST RESULTS PENDING ON DISCHARGE: None. ALLERGIES: 1. ADHESIVE TAPE. 2. HYDROCODONE. 3. TRAMADOL. DISCHARGE PLAN: Posthospital, the patient will follow up with primary care physician in 1 week. The patient will make appointment with Dr. Hennessy as instructed. HOSPITAL COURSE: A 38-year-old female with above-mentioned medical problem, who was admitted by Dr. Baird. Please see his H and P for further details. The patient was having nausea and vomiting, and she was also having headaches. She was taking [id number] ibuprofen. In the emergency room, she had CT brain, which was negative. She was given Toradol. She was not having any UTI symptoms. In the emergency room, routine blood test showed creatinine 3.23. Her urinalysis and CBC were unremarkable. The patient was given empirically levofloxacin for possible pyelonephritis based on CT scan finding. The patient received IV fluid while in hospital, and with that, her creatinine improved to 1.27. Her culture remained negative. We decided to continue 5 more days of oral antibiotic therapy upon discharge. We had discussion with her about holding NSAID to prevent future renal damage. At this point, the patient is ambulatory, tolerating p.o. well, and completely asymptomatic. I have seen and examined the patient at bedside today. All review of systems reviewed with her and negative. Plan of care discussed with the family member. PHYSICAL EXAMINATION: VITAL SIGNS: Temperature 97.9, pulse 51, respiratory rate 14, saturation 98% on room air, blood pressure 139/96, weight 169 pounds. GENERAL: The patient is currently alert and awake, in no obvious acute distress. HEENT: Normocephalic and atraumatic. LUNGS: Clear to auscultation without any rhonchi or rales. CARDIAC: S1 and S2. Regular without any murmur. ABDOMEN: Soft and benign without any tenderness. EXTREMITIES: No edema. NEUROLOGIC: Nonfocal examination. Overall, the patient is medically stable for discharge today. The patient will follow up with Dr. Hennessy for followup on CT scan finding to see resolution. Job ID: [id number]
== END 2018-12-14 10:53 | disposition home or self-care (01) | DRG 690 ==
LOC: ERS 21:49 → T4-B 12-12 01:25
PROVIDERS: ADMIT Internal Medicine; ATTEND Internal Medicine
DX: N10 Acute pyelonephritis (principal); N17.9 Acute kidney failure, unspecified; I10 Essential (primary) hypertension; E86.0 Dehydration; F41.9 Anxiety disorder, unspecified; M19.90 Unspecified osteoarthritis, unspecified site; E66.9 Obesity, unspecified; Z98.51 Tubal ligation status; Z88.5 Allergy status to narcotic agent; Z68.33 Body mass index [BMI] 33.0-33.9, adult
CPT/HCPCS: 36415; 70450; 74176; 80048; 80053; 80069; 81001; 82570; 83690; 84156; 84300; 84443; 84703; 85025; 87040; 87086; 96365; 96375; J1200; J1650; J1956; J2765; J3490

== ENCOUNTER 2019-05-30 03:13 | Emergency (ER) | payer OTHER | END 2019-05-30 03:40 | disposition home or self-care (01) | LOC: ERS 03:13 | DX: S61.452A Open bite of left hand, initial encounter (principal); I10 Essential (primary) hypertension; W50.3XXA Accidental bite by another person, initial encounter | CPT/HCPCS: 99283 ==

== ENCOUNTER 2019-07-01 22:22 | Emergency (ER) | payer OTHER ==
--- NOTE | 2019-07-01 23:03 | RAD ---
Right hand 3 views HISTORY: Right hand injury. FINDINGS: Joint spaces are preserved. No acute fracture, dislocation, or aggressive osseous erosions. IMPRESSION: Normal exam.
[2019-07-01] MEDS ORDERED: Acetaminophen 500 MG TAB ONE ×2 (23:10)
[2019-07-01 23:48] LABS: HIV (1/2) Antibody/Antigen Non-Reactive (NonReactive); HIV 1/2 INDEX 0.11 S/CO (<1.00); Hep C IgG Ab Non-Reactive (NonReactive); Hep C Index 0.08 S/CO (0-0.79)
[2019-07-01 23:51] LABS: HBSAB Concentration 307.85 mIU/mL; Hep B Surf AB Reactive (NonReactive)
== END 2019-07-01 23:17 | disposition home or self-care (01) ==
LOC: ERS 22:22
DX: S60.221A Contusion of right hand, initial encounter (principal); S60.410A Abrasion of right index finger, initial encounter; Z77.21 Contact with and (suspected) exposure to potentially hazardous body fluids; I10 Essential (primary) hypertension; F41.9 Anxiety disorder, unspecified; Z79.899 Other long term (current) drug therapy; Y04.0XXA Assault by unarmed brawl or fight, initial encounter
CPT/HCPCS: 36415; 86706; 86803; 87389

== ENCOUNTER 2020-04-14 11:49 | Outpatient (CLI) | payer OTHER ==
--- NOTE | 2020-04-14 12:52 | RAD ---
XR Knee Rt 4 View STANDARD History: Pain. Injury Comparison: None Findings: No acute displaced fracture or malalignment. No significant joint effusion. Impression: No acute osseous abnormality.
== END 2020-04-14 11:50 | disposition home or self-care (01) ==
LOC: SCSRAD 11:49
PROVIDERS: ATTEND Family Medicine
DX: M25.561 Pain in right knee (principal)

== ENCOUNTER 2020-07-21 18:46 | Observation (INO) | payer BC, OTHER, SELFPAY ==
[2020-07-21 19:30] LABS: #Basophils 0.1 thou/uL (0.0-0.2); #Eosinphils 0.1 thou/uL (0.0-0.7); #Lymphocytes 2.3 thou/uL (1.20-3.40); #Monocytes 0.7 thou/uL (0.11-0.59); %Basophils 0.6 % (0.0-1.0); %Eosinophils 0.5 % (0.0-10.0); %Lymphocytes 20.7 % (21.0-51.0); %Monocytes 6.5 % (0.0-10.0); %Neutrophils 71.7 % (42.0-75.0); Hemoglobin 13.6 g/dL (12.0-16.0); Mean Corpuscular HGB CONC 33.9 g/dL (32.0-36.0); Mean Corpuscular Hemoglobin 30.8 pg (27.0-31.0); Mean Corpuscular Volume 90.8 fL (78.0-98.0); Mean Platelet Volume 7.5 fL (7.4-10.4); Platelet Count 349 thou/uL (130-400); RBC Distribution Width 11.5 % (11.5-14.5); Red Blood Cell (RBC) Count 4.41 mill/uL (4.20-5.40); White Blood Cell (WBC) Count 11.2 thou/uL (4.8-10.8)
--- NOTE | 2020-07-21 19:40 | RAD ---
PORTABLE CHEST ONE VIEW: 07/21/20 at 7:25 p.m. HISTORY: Headache, weakness, numbness in the mouth and face. FINDINGS: The heart size is normal. The lungs are expanded without lobar consolidation, pneumothoraces or pleur al effusion. There are postop changes and metallic hardware in the lower cervical spine. IMPRESSION: No radiographic evidence of acute cardiopulmonary process. POS: MZA
[2020-07-21 19:53] LABS: ALT (SGPT) 17 U/L (8-55); AST (SGOT) 19 U/L (5-34); Albumin 4.5 g/dL (3.5-5.0); Alkaline Phosphatase 80 U/L (40-110); Anion Gap 16 mmol/L (10-20); BUN (Urea Nitrogen) 16 mg/dL (7.0-18.7); Bilirubin, Total 0.3 mg/dL (0.2-1.2); Calc. Creatinine Clearance 0 mL/min (70-130); Calcium 9.3 mg/dL (7.8-10.44); Carbon Dioxide 22 mmol/L (22-29); Chloride 103 mmol/L (98-107); Globulin 3.2 g/dL (2.4-3.5); Glucose 93 mg/dL (70-105); Potassium 3.6 mmol/L (3.5-5.1); Protein, Total 7.7 g/dL (6.0-8.3); Sodium 137 mmol/L (136-145)
--- NOTE | 2020-07-21 19:57 | CT ---
CT OF THE BRAIN WITHOUT CONTRAST: 07/21/20 HISTORY: Weakness, difficulty speaking, numbness in mouth and face. Headache. COMPARISON: 12/12/18. FINDINGS: No evidence of infarct, hemorrhage, midline shift or abnormal extra-axial fluid collections are seen. the ventricular size is normal and the basilar cisterns are patent. The bony calvarium is intact. T he visualized paranasal sinuses and mastoid air cells are well aerated. IMPRESSION: No CT evidence of acute intracranial process. POS: MZA
[2020-07-21 20:06] LABS: BHCG - Serum Negative (NEGATIVE); Pregs Control Background? CLEAR/WHITE (CLR/WHITE); Pregs Control Bar Appear? YES (CONTROL BAR)
[2020-07-21 20:09] LABS: Acetaminophen Less than 6.0 mcg/mL (10.0-30.0); Alcohol Less than 10 mg/dL (Less than 10); Salicylate Less than 8.0 mg/dL (15.0-30.0)
[2020-07-21 20:16] LABS: Bilirubin Negative (Negative); Blood, Urine Negative (Negative); Clarity Clear (Clear); Glucose, Urine (Dipstick) Normal (Negative); Ketone, Urine 10 mg/dL (Negative); Leukocyte Negative Leu/uL (Negative); Nitrite Negative (Negative); Protein, Urine (Dipstick) Negative (Neg-Trace); Specific Gravity, Urine 1.011 (1.002-1.036); Urobilinogen Normal mg/dL (Less than 2); pH, Urine 5.5 (5.0-9.0)
[2020-07-21 20:24] LABS: Amphetamine Not Detected (NotDetected); Barbiturates Screen Not Detected (NotDetected); Benzodiazepine Screen Not Detected (NotDetected); Cocaine Metabolite Screen Not Detected (NotDetected); Medtox Control Line Valid? VALID (VALID); Medtox Reader # READER 1; Methadone Not Detected (NotDetected); Methamphetamine Not Detected (NotDetected); Opiate Screen Not Detected (NotDetected); Oxycodone Screen Not Detected (NotDetected); Phencyclidine (PCP) Not Detected (NotDetected); THC/Cannabinoid Screen Not Detected (NotDetected); Tricyclic Screen Not Detected (NotDetected)
[2020-07-21] MEDS ORDERED: Aspirin Chewable 81 MG TAB ONE (21:08)
[2020-07-21] MEDS ORDERED: Acetaminophen 325 MG TAB PO PRN (23:06)
[2020-07-21] MEDS ORDERED: Ondansetron PF 4 MG/2 ML Vial IVP PRN (23:06)
--- NOTE | 2020-07-21 23:17 | PDOC.HHP ---
Hospitalist HPI Headache, difficulty speaking History of Present Illness: Patient is 39-year-old female with PMH of HTN who presents to ED with CC of headache and difficulty speaking. Patient states this afternoon she started having headache associated with difficulty speaking, nausea, lightheadedness, blurry vision, confusion, and generalized weakness. She says she also felt numbness on her mouth. She states later she was stuttering when she speaks. She did not think she had facial droop. ED Course: Initial NIHSS score:3 Allergies/Adverse Reactions: Allergy/AdvReac Type Severity Reaction Status Date / Time hydrocodone Allergy Severe Anaphylaxis Verified 07/22/20 03:57 Opioids - Morphine Analogues Allergy Severe Anaphylaxis Verified 07/22/20 03:57 tramadol Allergy Severe Anaphylaxis Verified 07/22/20 03:57 adhesive tape Allergy Intermediate Rash Verified 07/22/20 03:57 Home Medications: Medication Instructions Recorded Confirmed Type amLODIPine Besylate [Norvasc] 5 mg PO QAM 07/14/18 07/22/20 History Past History: PMHx: HTN, history of migraine PSHx: Neck surgery, uterine ablation, , tubal ligation FHx: Father: CAD mother: HLD, skin cancer Social: She drinks alcohol socially, she smokes cigarettes socially, she denies drug use Hospitalist HPI ROS Constitutional: denies: fever, chills Eyes: reports: vision change Respiratory: denies: shortness of breath Cardiovascular: denies: chest pain Gastrointestinal: reports: nausea. denies: vomiting Genitourinary: denies: dysuria Musculoskeletal: reports: other (Weakness) Skin: reports: other (Eczema) Neurological: reports: weakness, numbness, change in speech, confusion All other systems reviewed; all pertinent +/- noted in HPI/Subj Hospitalist Exam General Appearance: NAD, awake alert Eye: PERRL ENT: moist mucosa Neck: supple Heart: RRR, no murmur Respiratory: CTAB, no tachypnea Gastrointestinal: soft, non-tender, non-distended, normal bowel sounds Extremities: no edema Neurological: cranial nerve grossly intact, normal sensation to touch, no focal deficits Musculoskeletal: normal strength Psychiatric: normal affect, normal behavior Hospitalist Results Result Diagrams: 07/21/20 19:21 07/21/20 19:21 Lab results: Laboratory Last Values WBC 11.2 thou/uL (4.8-10.8) H 07/21/20 19:21 RBC 4.41 mill/uL (4.20-5.40) 07/21/20 19:21 Hgb 13.6 g/dL (12.0-16.0) 07/21/20 19: Hct 40.1 % (36.0-47.0) 07/21/20 19:21 MCV 90.8 fL (78.0-98.0) 07/21/20 19: MCH 30.8 pg (27.0-31.0) 07/21/20 19: MCHC 33.9 g/dL (32.0-36.0) 07/21/20 19: RDW 11.5 % (11.5-14.5) 07/21/20 19: Plt Count 349 thou/uL (130-400) 07/21/20 19: MPV 7.5 fL (7.4-10.4) 07/21/20 19: Neutrophils % 71.7 % (42.0-75.0) 07/21/20 19: Lymphocytes % 20.7 % (21.0-51.0) L 07/21/20 19: Monocytes % 6.5 % (0.0-10.0) 07/21/20 19: Eosinophils % 0.5 % (0.0-10.0) 07/21/20 19: Basophils % 0.6 % (0.0-1.0) 07/21/20 19:21 Neutrophils # 8.0 thou/uL (1.40-6.50) H 07/21/20 19:21 Lymphocytes # 2.3 thou/uL (1.20-3.40) 07/21/20 19:21 Monocytes # 0.7 thou/uL (0.11-0.59) H 07/21/20 19:21 Eosinophils # 0.1 thou/uL (0.0-0.7) 07/21/20 19: Basophils # 0.1 thou/uL (0.0-0.2) 07/21/20 19:21 Sodium 137 mmol/L (136-145) 07/21/20 19:21 Potassium 3.6 mmol/L (3.5-5.1) 07/21/20 19: Chloride 103 mmol/L (98-107) 07/21/20 19:21 Carbon Dioxide 22 mmol/L (22-29) 07/21/20 19:21 Anion Gap 16 mmol/L (10-20) 07/21/20 19:21 BUN 16 mg/dL (7.0-18.7) 07/21/20 19:21 Creatinine 0.84 mg/dL (0.6-1.1) 07/21/20 19:21 Estimated GFR (MDRD) 75 07/21/20 19:21 Glucose 93 mg/dL (70-105) 07/21/20 19: Calcium 9.3 mg/dL (7.8-10.44) 07/21/20 19: Total Bilirubin 0.3 mg/dL (0.2-1.2) 07/21/20 19: AST 19 U/L (5-34) 07/21/20 19: ALT 17 U/L (8-55) 07/21/20 19:21 Alkaline Phosphatase 80 U/L (40-110) 07/21/20 19: Troponin I Less than 0.010 ng/mL (< 0.028) 07/21/20 19: Serum Total Protein 7.7 g/dL (6.0-8.3) 07/21/20 19: Albumin 4.5 g/dL (3.5-5.0) 07/21/20 19: Globulin 3.2 g/dL (2.4-3.5) 07/21/20 19: Albumin/Globulin Ratio 1.4 g/dL (1.2-2.2) 07/21/20 19:21 Serum , Qual Negative (NEGATIVE) 07/21/20 19:27 Urine Color Colorless (Yellow) 07/21/20 19:54 Urine Clarity Clear (Clear) 07/21/20 19:54 Urine pH 5.5 (5.0-9.0) 07/21/20 19:54 Ur Specific [place] 1.011 (1.002-1.036) 07/21/20 19:54 Urine Protein Negative mg/dL (Neg-Trace) 07/21/20 19:54 Urine Glucose (UA) Normal mg/dL (Negative) 07/21/20 19:54 Urine Ketones 10 mg/dL (Negative) A 07/21/20 19:54 Urine Blood Negative (Negative) 07/21/20 19:54 Urine Nitrite Negative (Negative) 07/21/20 19:54 Urine Bilirubin Negative (Negative) 07/21/20 19:54 Urine Urobilinogen Normal mg/dL (Less than 2) 07/21/20 19:54 Ur Leukocyte Esterase Negative Layla/uL (Negative) 07/21/20 19:54 Salicylates Less than 8.0 mg/dL (15.0-30.0) L 07/21/20 19:21 Urine Opiates Screen Not Detected (NotDetected) 07/21/20 19:54 Ur Oxycodone Screen Not Detected (NotDetected) 07/21/20 19:54 Urine Methadone Screen Not Detected (NotDetected) 07/21/20 19:54 Ur Propoxyphene Screen Not Detected (NotDetected) 07/21/20 19:54 Acetaminophen Less than 6.0 mcg/mL (10.0-30.0) L 07/21/20 19:21 Ur Barbiturates Screen Not Detected (NotDetected) 07/21/20 19:54 Ur Tricyclics Screen Not Detected (NotDetected) 07/21/20 19:54 Ur Phencyclidine Scrn Not Detected (NotDetected) 07/21/20 19:54 Ur Amphetamines Screen Not Detected (NotDetected) 07/21/20 19:54 U Methamphetamines Scrn Not Detected (NotDetected) 07/21/20 19:54 U Benzodiazepines Scrn Not Detected (NotDetected) 07/21/20 19:54 U Cocaine Metab Screen Not Detected (NotDetected) 07/21/20 19:54 U Cannabinoids Screen Not Detected (NotDetected) 07/21/20 19:54 Drug Screen Comment () 07/21/20 19:54 Plasma Alcohol Less than 10 mg/dL (Less than 10) 07/21/20 19:21 CT scan - head Status: image reviewed by me Additional Comments: RADIOLOGY Fri Jul 21, 2020 20:[address] Brain WO Con Observe DT: FriJul 21, 2020 19:25, BR CT OF THE BRAIN WITHOUT CONTRAST: 07/21/20 HISTORY: Weakness, difficulty speaking, numbness in mouth and face. Headache. COMPARISON: 12/12/18. FINDINGS: No evidence of infarct, hemorrhage, midline shift or abnormal extra-axial fluid collections are seen. the ventricular size is normal and the basilar cisterns are patent. The bony calvarium is intact. T he visualized paranasal sinuses and mastoid air cells are well aerated. IMPRESSION: No CT evidence of acute intracranial process. RADIOLOGY FriJul 21, 2020 20:16 MD Macdonald Ruth XR Chest 1 View Portable Observe DT: FriJul 21, 2020 19:25, CXRP PORTABLE CHEST ONE VIEW: 07/21/20 at 7:25 p.m. HISTORY: Headache, weakness, numbness in the mouth and face. FINDINGS: The heart size is normal. The lungs are expanded without lobar consolidation, pneumothoraces or pleur al effusion. There are postop changes and metallic hardware in the lower cervical spine. IMPRESSION: No radiographic evidence of acute cardiopulmonary process. EKG Status: image reviewed by me Additional Comments: NSR Hospitalist H&P A/P (1) TIA (transient ischemic attack) Code(s): G45.9 - TRANSIENT CEREBRAL ISCHEMIC ATTACK, UNSPECIFIED Status: Acute Assessment and Plan: Patient presented with multiple neuro symptoms. No focal deficits on my exam. CT head showed no acute intracranial abnormalities. Plan: -frequent neuro checks -MRI of brain wo contrast, Echo, carotid doppler -Lipid panel (2) Hypertension Code(s): I10 - ESSENTIAL (PRIMARY) HYPERTENSION Status: Chronic Assessment and Plan: -Continue home med
[2020-07-22 02:56] VITALS: BMI 32.1
[2020-07-22 05:35] LABS: Anion Gap 14 mmol/L (10-20); BUN (Urea Nitrogen) 15 mg/dL (7.0-18.7); Calc. Creatinine Clearance 110 mL/min (70-130); Calcium 9.3 mg/dL (7.8-10.44); Carbon Dioxide 26 mmol/L (22-29); Cardiac Risk 3.5 (Less than 4.5); Chloride 103 mmol/L (98-107); Cholesterol 181 mg/dl (< 200 Desired); Glucose 111 mg/dL (70-105); HDL Cholesterol 52 mg/dL (>60 Neg Risk); LDL Cholesterol, Calculated 95 mg/dL; Potassium 3.1 mmol/L (3.5-5.1); Sodium 140 mmol/L (136-145); Triglycerides 168 mg/dL (Less than 150)
[2020-07-22 05:46] LABS: Eosinophils 1 % (0-10); Hemoglobin 13.4 g/dL (12.0-16.0); Lymphocytes 43 % (21-51); MDiff Complete? YES; Mean Corpuscular HGB CONC 33.8 g/dL (32.0-36.0); Mean Corpuscular Hemoglobin 30.9 pg (27.0-31.0); Mean Corpuscular Volume 91.3 fL (78.0-98.0); Mean Platelet Volume 7.7 fL (7.4-10.4); Monocytes 5 % (0-10); Neutrophil 51 % (42-75); Platelet Count 340 thou/uL (130-400); Platelet Morphology Comment Appears Adequate; RBC Distribution Width 11.5 % (11.5-14.5); Red Blood Cell (RBC) Count 4.35 mill/uL (4.20-5.40); White Blood Cell (WBC) Count 8.6 thou/uL (4.8-10.8)
[2020-07-22] MEDS ORDERED: Potassium Chloride 20 MEQ TAB PO SCH (06:30)
[2020-07-22] MEDS ORDERED: Amlodipine 5 MG TAB PO SCH ×2 (09:00)
--- NOTE | 2020-07-22 09:46 | MRI ---
MRI Brain WO Con: 07/22/2020 9:12 AM CLINICAL HISTORY: TIA. TECHNIQUE: Multiplanar, multisequence images were obtained of the brain. COMPARISON: CT the brain without contrast dated July 21, 2020. FINDINGS: Extra axial spaces: Normal in size and morphology for the patient's age. Hemorrhage: None. Ventricular system: Normal in size and morphology for the patient's age. Basal cisterns: Normal. Cerebral parenchyma: Normal. Midline shift: None. Cerebellum: Normal. Brainstem: Normal. OTHER: Calvarium: Normal. Vascular system: Normal. Visualized Paranasal sinuses: Clear. Visualized Orbits: Normal. Visualized upper cervical spine: Normal. Sella and skull base: Normal. IMPRESSION: No acute intracranial abnormality.
--- NOTE | 2020-07-22 09:57 | ULT ---
BILATERAL CAROTID DUPLEX ULTRASOUND: DATE: 07/22/2020 HISTORY: TIA. TECHNIQUE: Zayas scale ultrasound with color flow and spectral Doppler imaging of the extracranial carotid artery systems performed bilaterally. FINDINGS: No significant plaque formation is seen on either side. The peak systolic velocity in the right ICA measures 59 cm/second with an end-diastolic velocity of 1 6 cm/second and a systolic ratio of 0.59. The peak systolic velocity in the left ICA measures 95 cm/second with an end-diastolic velocity of 17 cm/second and a systolic ratio of 0.83. Flow in both vertebral arteries remains antegrade. IMPRESSION: No evidence of hemodynamically significant stenosis in either ICA. POS: GIANNAA
--- NOTE | 2020-07-22 14:25 | PDOC.HOSPP ---
- Subjective Encounter Date: 07/22/20 (f/u neuro changes) Encounter Time: 14:22 Subjective: Pt reports feeling back to normal. She denies any recurrence of sx. She describes about 30-45 minutes of changes yesterday with speech, ability to communicate, ability to move arms and legs. - Objective Vital Signs & Weight: Vital Signs (12 hours) Temp Pulse Resp BP BP Pulse Ox 07/22/20 12:00 97.9 F 69 16 131/86 99 07/22/20 09:06 59 L 133/77 07/22/20 08:00 97.7 F 60 18 133/77 97 07/22/20 03:27 98.1 F 70 16 115/54 L 98 Weight Weight 176 lb I&O: 07/21/20 07/22/20 07/23/20 06:59 06:59 06:59 Intake Total 450 Balance 450 Result Diagrams: 07/22/20 04:49 07/22/20 04:49 EKG Reviewed by me: Yes (tele - sinus 70's) Hospitalist ROS - Medication Medications: Active Medications Generic Name Dose Route Start Last Admin Trade Name Freq PRN Reason Stop Dose Admin Amlodipine Besylate 5 mg 07/22/20 09:00 07/22/20 09:06 Amlodipine 5 Mg Tab PO 5 mg DAILY JARET Administration Hospitalist Exam Vitals: Vital Signs (12 hours) Temp Pulse Resp BP BP Pulse Ox 07/22/20 12:00 97.9 F 69 16 131/86 99 07/22/20 09:06 59 L 133/77 07/22/20 08:00 97.7 F 60 18 133/77 97 07/22/20 03:27 98.1 F 70 16 115/54 L 98 Weight Weight 176 lb General Appearance: NAD Heart: RRR, no murmur Respiratory: CTAB, no wheezes, no rales, no ronchi Gastrointestinal: soft, non-tender, non-distended, normal bowel sounds Extremities: no cyanosis, no clubbing, no edema Musculoskeletal: normal tone Psychiatric: normal affect Hosp A/P (1) TIA (transient ischemic attack) Code(s): G45.9 - TRANSIENT CEREBRAL ISCHEMIC ATTACK, UNSPECIFIED Status: Acute (2) Hypertension Code(s): I10 - ESSENTIAL (PRIMARY) HYPERTENSION Status: Chronic - Plan Sx resolved - d/w Dr. Ivy and likely complicated migraine but cannot rule out TIA. She recommends low dose aspirin and statin and f/u with PCP. - await echo report and anticipate discharge home - hopefully tonight. dvt prophy - ambulatory gi prophy - not indicated code status full reviewed plan of care with patient/family, no questions or further needs at end of eval.
[2020-07-22 15:23] VITALS: BP 126/84; TEMP 98.1
--- NOTE | 2020-07-22 15:36 | CON ---
NEUROLOGY CONSULTATION DATE OF CONSULTATION: 07/22/2020 REASON FOR CONSULTATION: Headache, difficulty with speech, and numbness. HISTORY OF PRESENT ILLNESS: Ms. Mariella De Dios is a 39-year-old female with past medical history significant for hypertension, presented to the emergency room with severe headache and problem with speech. According to the patient, her symptoms started yesterday afternoon with a headache associated with difficulty speaking, nausea, lightheadedness, blurred vision, confusion, and generalized weakness. She also felt like she has numbness around the mouth and followed by stuttering. She decided to come to the emergency room for further evaluation. The patient denies chest pain, abdominal pain, recent illness, double vision, loss of vision, or loss of consciousness, or abnormal involuntary movements, recent shortness of breath or recent exposure to COVID-19. REVIEW OF SYSTEMS: All systems reviewed and were negative except the pertinent positives and negatives mentioned in the HPI. ALLERGIES: HYDROCODONE, OPIOIDS, MORPHINE TRAMADOL, ADHESIVE TAPE. HOME MEDICATIONS: Amlodipine. PAST MEDICAL HISTORY: Hypertension, history of migraine. PAST SURGICAL HISTORY: Neck surgery, uterine ablation, section, tubal ligation. FAMILY HISTORY: Significant for coronary artery disease. Mother had hyperlipidemia, skin cancer. SOCIAL HISTORY: The patient drinks socially. Denies smoking, alcohol, illegal drug use. Vital Signs & Weight: Vital Signs (12 hours) Temp Pulse Resp BP BP Pulse Ox 07/22/20 12:00 97.9 F 69 16 131/86 99 07/22/20 09:06 59 L 133/77 07/22/20 08:00 97.7 F 60 18 133/77 97 07/22/20 03:27 98.1 F 70 16 115/54 L 98 Weight Weight 176 lb I&O: 07/21/20 07/22/20 07/23/20 06:59 06:59 06:59 Intake Total 450 Balance 450 Active Medications Generic Name Dose Route Start Last Admin Trade Name Freq PRN Reason Stop Dose Admin Amlodipine Besylate 5 mg 07/22/20 09:00 07/22/20 09:06 Amlodipine 5 Mg Tab PO 5 mg DAILY JARET Administration PHYSICAL EXAMINATION: General Appearance: NAD Heart: RRR, no murmur Respiratory: CTAB, no wheezes, no rales, no ronchi Gastrointestinal: soft, non-tender, non-distended, normal bowel sounds Extremities: no cyanosis, no clubbing, no edema Musculoskeletal: normal tone Psychiatric: normal affect Neurological: Mental status, the patient is alert and oriented to person, place, and time. Recent and remote memory intact. Fund of knowledge is appropriate. Cranial nerves 2 through 12 intact. Motor; muscle, tone, and bulk are normal. Strength 5/5 bilaterally. Sensory intact. Cerebellar, finger-nose testing intact. Gait deferred due to patient's safety reason. DATA REVIEWED: I reviewed the labs which were essentially unremarkable. Head CT did not reveal acute intracranial pathology. WBC 11.2 thou/uL (4.8-10.8) H 07/21/20 19:21 RBC 4.41 mill/uL (4.20-5.40) 07/21/20 19: Hgb 13.6 g/dL (12.0-16.0) 07/21/20 19: Hct 40.1 % (36.0-47.0) 07/21/20 19: MCV 90.8 fL (78.0-98.0) 07/21/20 19: MCH 30.8 pg (27.0-31.0) 07/21/20 19: MCHC 33.9 g/dL (32.0-36.0) 07/21/20: RDW 11.5 % (11.5-14.5) 07/21/20 19:21 Plt Count 349 thou/uL (130-400) 07/21/20 19:21 MPV 7.5 fL (7.4-10.4) 07/21/20 19: Neutrophils % 71.7 % (42.0-75.0) 07/21/20 19:21 Lymphocytes % 20.7 % (21.0-51.0) L 07/21/20 19: Monocytes % 6.5 % (0.0-10.0) 07/21/20 19: Eosinophils % 0.5 % (0.0-10.0) 07/21/20 19:21 Basophils % 0.6 % (0.0-1.0) 07/21/20 19:21 Neutrophils # 8.0 thou/uL (1.40-6.50) H 07/21/20 19:21 Lymphocytes # 2.3 thou/uL (1.20-3.40) 07/21/20 19:21 Monocytes # 0.7 thou/uL (0.11-0.59) H 07/21/20 19:21 Eosinophils # 0.1 thou/uL (0.0-0.7) 07/21/20 19:21 Basophils # 0.1 thou/uL (0.0-0.2) 07/21/20 19:21 Sodium 137 mmol/L (136-145) 07/21/20 19:21 Potassium 3.6 mmol/L (3.5-5.1) 07/21/20 19:21 Chloride 103 mmol/L (98-107) 07/21/20 19:21 Carbon Dioxide 22 mmol/L (22-29) 07/21/20 19:21 Anion Gap 16 mmol/L (10-20) 07/21/20 19:21 BUN 16 mg/dL (7.0-18.7) 07/21/20 19:21 Creatinine 0.84 mg/dL (0.6-1.1) 07/21/20 19:21 Estimated GFR (MDRD) 75 07/21/20 19:21 Glucose 93 mg/dL (70-105) 07/21/20 19:21 Calcium 9.3 mg/dL (7.8-10.44) 07/21/20 19:21 Total Bilirubin 0.3 mg/dL (0.2-1.2) 07/21/20 19:21 AST 19 U/L (5-34) 07/21/20 19:21 ALT 17 U/L (8-55) 07/21/20 19:21 Alkaline Phosphatase 80 U/L (40-110) 07/21/20 19:21 Troponin I Less than 0.010 ng/mL (< 0.028) 07/21/20 19:21 Serum Total Protein 7.7 g/dL (6.0-8.3) 07/21/20 19:21 Albumin 4.5 g/dL (3.5-5.0) 07/21/20 19:21 Globulin 3.2 g/dL (2.4-3.5) 07/21/20 19:21 Albumin/Globulin Ratio 1.4 g/dL (1.2-2.2) 07/21/20 19:21 Serum , Qual Negative (NEGATIVE) 07/21/20 19:27 Urine Color Colorless (Yellow) 07/21/20 19:54 Urine Clarity Clear (Clear) 07/21/20 19:54 Urine pH 5.5 (5.0-9.0) 07/21/20 19:54 Ur Specific Juda 1.011 (1.002-1.036) 07/21/20 19:54 Urine Protein Negative mg/dL (Neg-Trace) 07/21/20 19:54 Urine Glucose (UA) Normal mg/dL (Negative) 07/21/20 19:54 Urine Ketones 10 mg/dL (Negative) A 07/21/20 19:54 Urine Blood Negative (Negative) 07/21/20 19:54 Urine Nitrite Negative (Negative) 07/21/20 19:54 Urine Bilirubin Negative (Negative) 07/21/20 19:54 Urine Urobilinogen Normal mg/dL (Less than 2) 07/21/20 19:54 Ur Leukocyte Esterase Negative Layla/uL (Negative) 07/21/20 19:54 Salicylates Less than 8.0 mg/dL (15.0-30.0) L 07/21/20 19:21 Urine Opiates Screen Not Detected (NotDetected) 07/21/20 19:54 Ur Oxycodone Screen Not Detected (NotDetected) 07/21/20 19:54 Urine Methadone Screen Not Detected (NotDetected) 07/21/20 19:54 Ur Propoxyphene Screen Not Detected (NotDetected) 07/21/20 19:54 Acetaminophen Less than 6.0 mcg/mL (10.0-30.0) L 07/21/20 19:21 Ur Barbiturates Screen Not Detected (NotDetected) 07/21/20 19:54 Ur Tricyclics Screen Not Detected (NotDetected) 07/21/20 19:54 Ur Phencyclidine Scrn Not Detected (NotDetected) 07/21/20 19:54 Ur Amphetamines Screen Not Detected (NotDetected) 07/21/20 19:54 U Methamphetamines Scrn Not Detected (NotDetected) 07/21/20 19:54 U Benzodiazepines Scrn Not Detected (NotDetected) 07/21/20 19:54 U Cocaine Metab Screen Not Detected (NotDetected) 07/21/20 19:54 U Cannabinoids Screen Not Detected (NotDetected) 07/21/20 19:54 Drug Screen Comment () 07/21/20 19:54 Plasma Alcohol Less than 10 mg/dL (Less than 10) 07/21/20 19:21 CT scan - head Status: image reviewed by me Additional Comments: RADIOLOGY FriJul 21, 2020 20:[address] Brain WO Con Observe DT: FriJul 21, 2020 19:25, BR CT OF THE BRAIN WITHOUT CONTRAST: 07/21/20 HISTORY: Weakness, difficulty speaking, numbness in mouth and face. Headache. COMPARISON: 12/12/18. FINDINGS: No evidence of infarct, hemorrhage, midline shift or abnormal extra-axial fluid collections are seen. the ventricular size is normal and the basilar cisterns are patent. The bony calvarium is intact. T he visualized paranasal sinuses and mastoid air cells are well aerated. IMPRESSION: No CT evidence of acute intracranial process. RADIOLOGY FriJul 21, 2020 20:16 MD Macdonald Ruth XR Chest 1 View Portable Observe DT: FriJul 21, 2020 19:25, CXRP PORTABLE CHEST ONE VIEW: 07/21/20 at 7:25 p.m. HISTORY: Headache, weakness, numbness in the mouth and face. FINDINGS: The heart size is normal. The lungs are expanded without lobar consolidation, pneumothoraces or pleur al effusion. There are postop changes and metallic hardware in the lower cervical spine. IMPRESSION: No radiographic evidence of acute cardiopulmonary process. EKG Status: image reviewed by me Additional Comments: NSR ASSESSMENT AND PLAN: (1) TIA (transient ischemic attack) Code(s): G45.9 - TRANSIENT CEREBRAL ISCHEMIC ATTACK, UNSPECIFIED Status: Acute (2) Hypertension Code(s): I10 - ESSENTIAL (PRIMARY) HYPERTENSION Status: Chronic Ms. Mareilla De Dios is a 39-year-old female, who presented with stroke-like symptoms, transient ischemic attack versus complicated migraine is in the differential. MRI of the brain reviewed which was negative for acute intracranial pathology. Carotid Doppler did not reveal hemodynamically significant stenosis. Start aspirin and high-intensity statin for secondary stroke prevention. Strict control of blood pressure and blood glucose. Neuro checks every 4 hours. 2D echo to evaluate for left ventricular ejection fraction is pending and is completed at this time, but results are pending at this time. Continue home medications. Continue medical management per primary team, PT/OT/Speech. The patient is back to her baseline. We will continue to follow Plan discussed in detail with the patient, at bedside, nursing staff and the primary attending Dr. Theodore Thank you for the consult. Job ID: [id number] [facility]ERSIDE HOSPITALJulian
--- NOTE | 2020-07-22 17:04 | DIS ---
DATE OF ADMISSION: 07/21/2020 DATE OF DISCHARGE: 07/22/2020 SERVICE TRAINER: Cata Olson MD of Neurology. MEDICATIONS: Reconciled at discharge. New medications: 1. Aspirin 81 mg daily. 2. Lipitor 10 mg at bedtime. Medication to continue: Amlodipine 5 mg daily. DISCHARGE DIAGNOSIS: Neurologic changes, likely complex migraine, however, cannot rule out transient ischemic attack. SECONDARY DIAGNOSIS: Hypertension. HISTORY OF PRESENT ILLNESS: Ms. De Dios is a 39-year-old female, who yesterday had an episode of 30 to 45 minutes where she had difficulty speaking, nausea, blurred vision, weakness in her arms and legs. This was new in onset. She also had a headache before the onset of these symptoms. She has a history of migraines, however, had never had symptoms similar to yesterday. The patient was admitted for a stroke evaluation. HOSPITAL COURSE: The patient monitored on telemetry and maintained a sinus rhythm. She underwent an MRI, carotid ultrasound and echocardiogram, all of which were normal. She was evaluated by Neurology, Dr. Olson recommends low-dose aspirin and low-dose atorvastatin as we cannot rule out a TIA. It is recommended that she followup in the outpatient setting and talk with her primary care provider. Her blood pressures have been well controlled and her symptoms remain resolved. Because of this, she does meet discharge criteria. PHYSICAL EXAMINATION: VITAL SIGNS: On day of discharge, please see the note on the chart. RIVERA FINDINGS AND TEST RESULTS: 1. CBC today is 8.6, 13.4, 39.7, 340. 2. White blood cell count yesterday was 11.2. 3. Renal panel; 140, 3.1, 103, 26, 15 0.86, 111. 4. Liver function tests normal. 5. Triglycerides 168, cholesterol 181, LDL 95, HDL 52. 6. test negative. 7. Urine showed present ketones. 8. Urine drug screen, alcohol, Tylenol, salicylate all negative. 9. Echocardiogram shows an EF of 55% to 60%. Mild MR and TR. 10. Brain MRI shows no acute findings. 11. Chest x-ray performed on July 21, negative for any acute process. 12. Brain CT on 07/21, no CT evidence of an acute intracranial process. 13. Carotid ultrasound, no evidence of hemodynamically significant stenosis in either ICA. DIET: Heart healthy. ACTIVITY: As tolerated. DISCHARGE DISPOSITION: Home. FOLLOW UP: 1. Dr. Brown within a week to review this hospitalization, headaches, and any other health needs. CODE STATUS: Full. Reviewed with the patient and her family this hospitalization, the normal test results, the importance of followup and seek care precautions. They demonstrated understanding. TIME SPENT: Total time coordinating discharge is 30 minutes. Job ID: [id number] MTDD
[2020-07-22 17:54] LABS: SARS-CoV-2 PCR NAA for Saliva Not Detected (NotDetected)
[2020-07-22] MEDS ORDERED: Atorvastatin Calcium 10 MG TAB PO SCH (21:00)
[2020-07-23] MEDS ORDERED: Aspirin 81 mg Enteric Coated Tablet PO SCH (09:00)
== END 2020-07-22 17:23 | disposition home or self-care (01) ==
LOC: ERS 18:46 → 2SE 22:49
PROVIDERS: ADMIT Student in an Organized Health Care Education/Training Program; ATTEND Family Medicine
DX: R51.9 Headache, unspecified (principal); R47.9 Unspecified speech disturbances; R11.0 Nausea; H53.8 Other visual disturbances; R53.1 Weakness; I10 Essential (primary) hypertension; F17.210 Nicotine dependence, cigarettes, uncomplicated; Z79.899 Other long term (current) drug therapy; Z88.5 Allergy status to narcotic agent; Z91.048 Other nonmedicinal substance allergy status; Z20.822 Contact with and (suspected) exposure to COVID-19
CPT/HCPCS: 36415; 70450; 70551; 71045; 80048; 80053; 80061; 80306; 80307; 81003; 83735; 84484; 84703; 85007; 85025; 85027; 87635; 93005; 93306; 93880; G0378; U0003; U0005